=== PATIENT | male | born 1945 | race Caucasian/White ===

== ENCOUNTER 2016-12-28 11:52 | Observation (INO) | payer OTHER ==
[~2016-12-28] VITALS: Ht 185.4 cm; Wt 119.9 kg
[2016-12-28 12:19] LABS: HEMATOCRIT 42.5 % (38.0-50.0); MCH 31.7 PG (29.0-34.0); MCHC 35.8 G/DL (30.0-36.0); MCV 88.7 FL (86-99); MEAN PLAT.VOLUME 8.9 uM^3 (9.0-12.4); PLATELET COUNT 181 K/uL (156-360); RBC DIS.WIDTH-SD 41.7 % (39-53); RED BLOOD COUNT 4.79 M/uL (4.00-5.50); WHITE BLOOD COUNT 4.5 K/uL (4.1-10.2)
[2016-12-28 12:29] LABS: CHLORIDE 106 mEq/L (99-109); POTASSIUM 4.4 mEq/L (3.7-5.4); SODIUM 140 mEq/L (136-147)
[2016-12-28 12:30] LABS: GLUCOSE 146 mg/dL (70-99)
[2016-12-28 12:32] LABS: ANION GAP 8 MEQ/L (2-14)
[2016-12-28 12:34] LABS: GFR ESTIMATE (CALCULATED) > 59 mL/min/
[2016-12-28 12:35] LABS: UREA NITROGEN (BUN) 17 mg/dL (9-23)
[2016-12-28 12:42] LABS: TROP-I INTERPRETATION NEGATIVE; TROPONIN-I 0.03 ng/mL (0.0-0.30)
[2016-12-28] MEDS ORDERED: METFORMIN HCL500 M4 PO (14:45)
[2016-12-28] MEDS ORDERED: FLOMAX0.4 MG PO (14:47)
[2016-12-28] MEDS ORDERED: LO-DOSE ASPIRIN81 M2 PO (14:48)
[2016-12-28] MEDS ORDERED: LOSARTAN POTASS50 MG PO (14:48)
[2016-12-28] MEDS ORDERED: SINGULAIR10 MG PO (14:48)
[2016-12-28] MEDS ORDERED: PEPCID20 MG PO (14:49)
[2016-12-28] MEDS ORDERED: LORATADINE10 M2 PO (14:49)
[2016-12-28 16:03] LABS: D-DIMER ELISA 0.16 mg/L FEU (< 0.57)
[2016-12-28 16:04] VITALS: BP 172/83
[2016-12-28 19:51] LABS: TROP-I INTERPRETATION NEGATIVE; TROPONIN-I 0.04 ng/mL (0.0-0.30)
[2016-12-28 19:55] VITALS: BP 149/79
[2016-12-28] MEDS ORDERED: 24 HOUR ALLER15.8 ML BOTH NARES (22:45)
[2016-12-28 23:49] VITALS: BP 138/75
[2016-12-29 01:24] LABS: TROP-I INTERPRETATION NEGATIVE; TROPONIN-I 0.04 ng/mL (0.0-0.30)
[2016-12-29 03:46] VITALS: BP 128/70
[2016-12-29 07:26] LABS: ALKALINE PHOSPHATASE 40 IU/L (3-129); ANION GAP 8 MEQ/L (2-14); CHLORIDE 105 MEQ/L (99-109); GFR ESTIMATE (CALCULATED) > 59 mL/min/; GLUCOSE 117 mg/dL (70-99); POTASSIUM 3.9 MEQ/L (3.7-5.4); SAMPLE HEMOLYSIS CHECK 0; SAMPLE ICTERIC CHECK 0; SAMPLE LIPEMIA CHECK 0; SODIUM 140 MEQ/L (136-147); TOTAL BILIRUBIN 0.7 MG/DL (0.0-1.0); UREA NITROGEN (BUN) 16 mg/dL (9-23)
[2016-12-29 07:28] LABS: HEMATOCRIT 43.5 % (38.0-50.0); MCH 30.6 PG (29.0-34.0); MCV 90.1 FL (86-99); MEAN PLAT.VOLUME 9.8 uM^3 (9.0-12.4); PLATELET COUNT 159 K/uL (156-360); RBC DIS.WIDTH-CV 13.2 % (11.8-14.6); RBC DIS.WIDTH-SD 43.2 % (39-53); RED BLOOD COUNT 4.83 M/uL (4.00-5.50)
[2016-12-29 07:40] VITALS: BP 137/84
== END 2016-12-29 11:54 | disposition home or self-care (01) ==
LOC: EME 11:52 → EDOF 14:39 → 5WEST 14:39
PROVIDERS: Internal Medicine
DX: R07.89 Other chest pain (principal); E11.65 Type 2 diabetes mellitus with hyperglycemia; I10 Essential (primary) hypertension; N40.0 Benign prostatic hyperplasia without lower urinary tract symptoms; E66.9 Obesity, unspecified; Z66 Do not resuscitate
CPT/HCPCS: 71020; 80048; 80053; 84484; 85027; 85379; 93005; G0378; J1815

== ENCOUNTER 2017-01-09 10:27 | Observation (INO) | payer OTHER ==
[~2017-01-09] VITALS: Ht 185.4 cm; Wt 119.0 kg
[~2017-01-09 10:27] MED LIST: 24 HOUR ALLER15.8 ML BOTH NARES; FLOMAX0.4 MG PO; LO-DOSE ASPIRIN81 M2 PO; LORATADINE10 M2 PO; LOSARTAN POTASS50 MG PO; METFORMIN HCL500 M4 PO; PEPCID20 MG PO; SINGULAIR10 MG PO
[2017-01-09] MEDS ORDERED: ASPIRIN325 MG PO (10:52)
[2017-01-09] MEDS ORDERED: PRILOSEC10 MG PO (10:53)
[2017-01-09] MEDS ORDERED: METOPROLOL SUCC25 MG PO (10:55)
[2017-01-09] MEDS ORDERED: ATORVASTATIN CA40 MG PO (10:55)
[2017-01-09 11:06] LABS: HEMATOCRIT 45.4 % (38.0-50.0); MCH 31.5 PG (29.0-34.0); MCHC 34.4 G/DL (30.0-36.0); MCV 91.5 FL (86-99); MEAN PLAT.VOLUME 9.2 uM^3 (9.0-12.4); PLATELET COUNT 202 K/uL (156-360); RBC DIS.WIDTH-CV 12.9 % (11.8-14.6); RBC DIS.WIDTH-SD 42.7 % (39-53); RED BLOOD COUNT 4.96 M/uL (4.00-5.50)
[2017-01-09 11:15] LABS: POINT-OF-CARE METER ID UU13113696
[2017-01-09 11:26] LABS: ANION GAP 9 MEQ/L (2-14); CHLORIDE 102 MEQ/L (99-109); SAMPLE HEMOLYSIS CHECK 1; SAMPLE ICTERIC CHECK 0; SAMPLE LIPEMIA CHECK 0; SODIUM 139 MEQ/L (136-147)
[2017-01-09 11:31] LABS: GFR ESTIMATE (CALCULATED) > 59 mL/min/; GLUCOSE 114 mg/dL (70-99); UREA NITROGEN (BUN) 16 mg/dL (9-23)
[2017-01-09 11:32] LABS: POTASSIUM 4.4 MEQ/L (3.7-5.4)
[2017-01-09 13:02] LABS: POINT-OF-CARE METER ID UU13113819
[2017-01-09 15:57] LABS: POINT-OF-CARE METER ID UU13113819
[2017-01-09 19:48] VITALS: BP 114/65
[2017-01-10 00:33] VITALS: BP 124/70
[2017-01-10 07:15] VITALS: BP 144/88
== END 2017-01-10 08:12 | disposition short-term general hospital (02) ==
LOC: CATH 10:27 → 4EAST 12:33 → 2SOUTH 12:33 → 4EAST 19:37 → CATH 01-12 11:30
PROVIDERS: Internal Medicine Cardiovascular Disease
PROC: B2111ZZ Fluoroscopy of Multiple Coronary Arteries using Low Osmolar Contrast (ICD-10-PCS; principal; 2017-01-09)
PROC: B2151ZZ Fluoroscopy of Left Heart using Low Osmolar Contrast (ICD-10-PCS; principal; 2017-01-09)
PROC: 4A023N7 Measurement of Cardiac Sampling and Pressure, Left Heart, Percutaneous Approach (ICD-10-PCS; principal; 2017-01-09)
DX: I25.10 Atherosclerotic heart disease of native coronary artery without angina pectoris (principal); I25.82 Chronic total occlusion of coronary artery; E11.9 Type 2 diabetes mellitus without complications; I10 Essential (primary) hypertension; E78.2 Mixed hyperlipidemia; C61 Malignant neoplasm of prostate; E66.9 Obesity, unspecified; Z68.34 Body mass index [BMI] 34.0-34.9, adult; Z87.891 Personal history of nicotine dependence; Z79.82 Long term (current) use of aspirin; Z79.84 Long term (current) use of oral hypoglycemic drugs
CPT/HCPCS: 80048; 82948; 85027; 85347; C1750; C1769; C1887; C1894; G0378; J1644; J1815; J2250; J3010; J7040